=== PATIENT | female | born 1950 | race Caucasian/White ===

== ENCOUNTER 2017-12-07 15:00 | Emergency (ER) | payer OTHER ==
[~2017-12-07] VITALS: Ht 160 cm; Wt 59.4 kg
--- NOTE | ~2017-12-07 | EKG ---
[place] [address] [facility] 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: KKODJOVI : 1950 Requested By: Stacy Lindsey Order Number: [id number] MD: Donaldo Granger Measurements Intervals [place] Rate: 101 P: 48 TN: 147 QRS: 39 QRSD: 81 T: 39 QT: 343 QTc: 445 Interpretive Statements Sinus tachycardia Otherwise no significant abnormality Compared to ECG 04/08/2001 12:25:38 heart rate has increased Electronically Signed On 12-09-2017 8:28:24 CDT by Donaldo Granger [email or web address] <ELECTRONICALLY SIGNED> By: Donaldo Granger MD, [facility] 12/09/17 0828 1508 1508 Donaldo Granger MD, FACC /EPI
[~2017-12-07 15:00] MED LIST: PROAIR HFA8.5 GM IH; ZPAK PO
[2017-12-07 15:22] LABS: ABSOLUTE NEUTROPHILS 4.5 thou/uL (1.4-8.2); BASOPHILS 1.1 % (0.0-2.0); EOSINOPHILS 3.2 % (0.0-3.0); HEMATOCRIT 35.1 % (37.0-47.0); HEMOGLOBIN 11.8 gm/dL (12.0-15.0); LYMPHOCYTES 31.5 % (24.0-44.0); MCHC 33.7 g/dL (28.0-37.0); MONOCYTES 8.6 % (1.0-8.0); PLATELET COUNT 316 thou/uL (150-400); POLYS 55.6 % (36.0-66.0); RBC 4.08 mil/uL (4.20-5.00); RDW 15.9 % (10.5-14.5); WBC 8.1 thou/uL (4.0-11.0)
[2017-12-07] MEDS ORDERED: HYDROCHLOROTH12.5 M1 PO (15:26)
[2017-12-07] MEDS ORDERED: COZAAR 50 MG TA50 M2 PO (15:26)
[2017-12-07] MEDS ORDERED: FEMARA2.5 MG PO (15:27)
[2017-12-07] MEDS ORDERED: FLONASE 0.05%50 MCG NASAL (15:27)
[2017-12-07] MEDS ORDERED: JANUMET 50-1,01 EACH PO (15:32)
[2017-12-07 15:37] LABS: ANION GAP 9 mmol/L (7-16); BUN 18 mg/dL (7-18); CALCIUM 9.7 mg/dL (8.5-10.1); CHLORIDE 101 mmol/L (98-107); CO2 28 mmol/L (21-32); CREATININE 1.1 mg/dL (0.6-1.0); GLUCOSE 122 mg/dL (74-106); POTASSIUM 3.6 mmol/L (3.5-5.1); SODIUM 138 mmol/L (136-145)
[2017-12-07 15:42] LABS: ALBUMIN 3.8 g/dL (3.4-5.0); SGOT 24 U/L (15-37); SGPT 33 U/L (30-65); TOTAL BILIRUBIN 0.3 mg/dL (<0.1-1.0); TOTAL PROTEIN 7.8 g/dL (6.4-8.2); TROPONIN-I <0.06 ng/mL (<0.06)
[2017-12-07] MEDS ORDERED: LIDODERM1 EACH TRANSDERM (18:10)
[2017-12-07] MEDS ORDERED: VALIUM5 MG PO (18:10)
[2017-12-07 18:19] VITALS: BP 152/76
== END 2017-12-07 18:20 | disposition home or self-care (01) ==
LOC: ER 15:00
PROVIDERS: Student in an Organized Health Care Education/Training Program
DX: R07.89 Other chest pain (principal); M79.622 Pain in left upper arm; R00.0 Tachycardia, unspecified; E11.9 Type 2 diabetes mellitus without complications; I10 Essential (primary) hypertension; Z88.5 Allergy status to narcotic agent; Z85.3 Personal history of malignant neoplasm of breast; Z90.13 Acquired absence of bilateral breasts and nipples

== ENCOUNTER 2020-10-22 05:50 | Emergency (ER) | payer OTHER ==
[~2020-10-22] VITALS: Ht 157.5 cm; Wt 62.1 kg
[~2020-10-22 05:50] MED LIST changes: +COZAAR 50 MG TA50 M2 PO; +FEMARA2.5 MG PO; +FLONASE 0.05%50 MCG NASAL; +HYDROCHLOROTH12.5 M1 PO; +JANUMET 50-1,01 EACH PO; +LIDODERM1 EACH TRANSDERM; +VALIUM5 MG PO
[2020-10-22] MEDS ORDERED: JARDIANCE25 MG PO (06:00)
[2020-10-22] MEDS ORDERED: MEDROLDOSEPACK PO (07:13)
[2020-10-22] MEDS ORDERED: ZOFRAN ODT4 MG PO (07:13)
[2020-10-22 07:38] VITALS: BP 136/71
== END 2020-10-22 07:38 | disposition home or self-care (01) ==
LOC: ER 05:50
DX: S46.911A Strain of unspecified muscle, fascia and tendon at shoulder and upper arm level, right arm, initial encounter (principal); Z85.3 Personal history of malignant neoplasm of breast; Z90.11 Acquired absence of right breast and nipple; Z87.898 Personal history of other specified conditions; Z98.890 Other specified postprocedural states; X58.XXXA Exposure to other specified factors, initial encounter; Y93.89 Activity, other specified; Y92.89 Other specified places as the place of occurrence of the external cause; Y99.8 Other external cause status; E11.9 Type 2 diabetes mellitus without complications; Z88.5 Allergy status to narcotic agent

== ENCOUNTER 2021-02-15 19:45 | Inpatient (IN) | payer OTHER ==
[~2021-02-15] VITALS: Ht 160 cm; Wt 61.7 kg
[~2021-02-15 19:45] MED LIST changes: +JARDIANCE25 MG PO; +MEDROLDOSEPACK PO; +ZOFRAN ODT4 MG PO
[2021-02-15 20:18] VITALS: BP 177/101
[2021-02-15 20:55] LABS: ABSOLUTE NEUTROPHILS 5.1 thou/uL (1.4-8.2); BASOPHILS 0.6 % (0.0-2.0); EOSINOPHILS 6.2 % (0.0-3.0); HEMATOCRIT 37.7 % (37.0-47.0); HEMOGLOBIN 12.6 gm/dL (12.0-15.0); LYMPHOCYTES 20.3 % (24.0-44.0); MCH 28.4 pg (26.0-34.0); MCHC 33.3 g/dL (28.0-37.0); MCV 85.3 fL (80.0-100.0); MONOCYTES 8.6 % (1.0-8.0); PLATELET COUNT 265 thou/uL (150-400); POLYS 64.3 % (36.0-66.0); RBC 4.42 mil/uL (4.20-5.00); WBC 7.9 thou/uL (4.0-11.0)
[2021-02-15 20:59] LABS: CREATININE 1.4 mg/dL (0.6-1.0); POTASSIUM 4.4 mmol/L (3.5-5.1)
[2021-02-15 21:41] LABS: ALBUMIN 3.3 g/dL (3.4-5.0); TOTAL BILIRUBIN 0.2 mg/dL (0.2-1.0); TOTAL PROTEIN 7.7 g/dL (6.4-8.2)
[2021-02-15 22:54] LABS: INR 0.98; PROTIME 10.7 Seconds (10.5-12.1)
[2021-02-16] VITALS (11 sets, daily range): BP systolic 111–169; BP diastolic 53–94
[2021-02-16] MEDS ORDERED: JANUMET 50-5001 EACH PO (00:57)
[2021-02-16] MEDS ORDERED: FEMARA2.5 MG PO (00:58)
[2021-02-16] MEDS ORDERED: OMEPRAZOLE40 MG PO (00:59)
[2021-02-16] MEDS ORDERED: FOSAMAX 70 MG T70 MG PO (00:59)
[2021-02-16] MEDS ORDERED: ZOLOFT 50 MG TA50 MG PO (01:00)
[2021-02-16] MEDS ORDERED: ATACAND4 MG PO (01:00)
[2021-02-16] MEDS ORDERED: KAPSPARGO SPRIN25 MG PO (01:01)
[2021-02-16 02:54] LABS: CHOLESTEROL 244 mg/dL (<200); HDL CHOLESTEROL 51 mg/dL (>40); LDL CHOLESTEROL 147 mg/dL (<100); TC:HDL 4.8 Ratio (Not establshd); TRIGLYCERIDE 230 mg/dL (<150); VLDL 46 mg/dL (<40)
[2021-02-16 03:05] LABS: SERUM ASSESSMENT Slight Lipemia
--- NOTE | 2021-02-16 03:07 | NUR ---
pt admitted from er at 0130, alert and orientedx4, denies chest pain or sob, heparim and nitro gtt initiated in the ER, admission assessment, hx and education completed, c/o headache, tyl given, vital signs remains stable, pt is npo, no distress noted, will continue to monitor per poc
[2021-02-16 05:30] LABS: HEMATOCRIT 36.8 % (37.0-47.0); HEMOGLOBIN 11.8 gm/dL (12.0-15.0); MCH 27.8 pg (26.0-34.0); MCHC 31.9 g/dL (28.0-37.0); MCV 86.9 fL (80.0-100.0); RBC 4.24 mil/uL (4.20-5.00); RDW 17.7 % (10.5-14.5); WBC 8.2 thou/uL (4.0-11.0)
[2021-02-16 05:47] LABS: CREATININE 1.2 mg/dL (0.6-1.0); POTASSIUM 4.4 mmol/L (3.5-5.1)
--- NOTE | 2021-02-16 07:04 | EKG ---
[address] [place] [address] ELECTROCARDIOGRAM REPORT Name: YENNI AGUILA Room #: 212-P ADM IN M.R.#: [id number] Admission: 02/15/21 Attend Phys: Ankit Arechiga MD Discharge: Date of : 46 Report #: [id number] [facility] ED Test Date: 2021-02-15 Test Time: 21:55:55 Pat Name: YENNI AGUILA Department: Room: 212 Gender: F Risk Tech: chinmay : 1950 Requested By: Diamante Clayton Order Number: [id number] MD: Parrish Watts Measurements Intervals [place] Rate: 79 P: 52 [place]: 160 QRS: 65 QRSD: 101 T: 93 QT: 368 QTc: 422 Interpretive Statements Sinus rhythm Anterior infarct, old Nonspecific T abnormalities, lateral leads ST elevation, consider inferior injury Compared to ECG 12/07/2017 15:08:45 Myocardial infarct finding now present T-wave abnormality now present ST (T wave) deviation now present Sinus tachycardia no longer present Electronically Signed On 02-16-2021 7:04:38 CDT by Parrish Watts [email or web address] <ELECTRONICALLY SIGNED> By: Parrish Watts MD, FACC 02/16/21 0704 54 Parrish Watts MD, [facility] /EPI
--- NOTE | 2021-02-16 07:38 | EKG ---
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: rohan : 1950 Requested By: Diamante Clayton Order Number: [id number] MD: Donaldo Grangre Measurements Intervals [place] Rate: 97 P: 56 [place]: 155 QRS: 66 QRSD: 86 T: 82 QT: 344 QTc: 437 Interpretive Statements Sinus rhythm Poor R wave progression ST elevation, consider inferior injury Compared to ECG 12/07/2017 15:08:45 ST (T wave) deviation now present Sinus tachycardia no longer present Electronically Signed On 02-16-2021 7:38:10 CDT by Donaldo Granger [email or web address] <ELECTRONICALLY SIGNED> By: Donaldo Granger MD, [facility] 02/16/21 07 23 23 Donaldo Granger MD, [facility] /EPI
--- NOTE | 2021-02-16 11:57 | CATHLAB ---
[facility] [place] [address] INVASIVE PROCEDURE REPORT Name: YENNI AGUILA Room #: 212-P ADM IN M.R.#: [id number] Admission: 02/15/21 Attend Phys: Ankit Arechiga MD Discharge: Date of : 48 Report #: [id number] THIS REPORT FOR: cc: Brynn Shaikh MD Mohan, Purnima, MD Park, Jin S. MD ~ APPROVED REPORT Study performed: 02/16/2021 09:19:57 Patient Details Patient Status: In-Patient Room #: 212 The patient is a 71 year-old female Event Personnel Matias Burns Cheese Cooker, Michelle Monsalve RTR Monitor, Jemma Figueroa RTR Scrub, Cinthia Cancino RN physicians assistant Performed Art Access - R femoral artery* Left Heart Cath w/or w/o Coronaries 1790316 [facility] w/wo Plasty Single RCA 087781 Hemostasis w/ Mynx 71139 Initial Mod Sed Same Phys/QHP Gr5y 708926 99060 Mod Sed Same Phys/QHP Ea 874129 Indication Non-STEMI , Unstable angina , Chest pain Risk Factors Family History, Hypercholesterolemia, Hypertension, Diabetes Previous Procedures/Diagnoses 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 Procedure Narrative The Right Groin^ was infiltrated with 1% Lidocaine subcutaneous anesthesia. A PINNACLE 4FR Sheath #[id number] sheath was inserted into the RFA^. Coronary angiography was performed using coronary diagnostic catheters. The right coronary system was accessed and visualized with a JR4 catheter. The left coronary system was accessed and visualized with a JL4 catheter. The left ventricle was accessed and visualized with a PIGTAIL catheter. Left ventriculogram was performed in 30 degree projection. Closure device was deployed with a Fr MYNXGRIP 6/7F #[id number]. The patient tolerated the procedure well and there were no complications associated with the procedure. There [place] [address] [employer] [place] [address] INVASIVE PROCEDURE REPORT Name: AGUILAYENNI Room #: 212-P [facility] IN ..#: [id number] Admission: 02/15/21 Attend Phys: Ankit Arechiga, Discharge: Date of : 46 Report #: [id number] was no hematoma. Intraoperative Conscious Sedation Sedation start time: 10:15 Case end Time: 11:30 Fentanyl 100 mcg Versed 2 mg Fluoro Time: 12.90 minutes Dose: DAP 65367.20 cGycm2 1859 mGy Contrast Type and Amount: Visipaque 205 ml Coronary Angiography The patient's coronary anatomy is right dominant. Diagnostic Cath Left Main The left main artery is a large-caliber vessel, appears angiographically normal. LAD There is a total occlusion in the proximal LAD at the takeoff of the first septal electrical appliance repairer. Appears to be chronic with collateral filling of the mid LAD segment. The distal LAD is filled via collateral circulation from the PDA. Circumflex There is a severe occlusion in the proximal left circumflex artery, 70 to 80%. OM1 This is a small to moderate-sized caliber vessel with a 70% ostial stenosis. OM2 This is a moderate-sized caliber vessel, patent with no flow-limiting lesions. Right Coronary The RCA is a dominant vessel with severe occlusions in the proximal and mid segments. R PDA This is a small to moderate-sized caliber vessel, patent with no flow-limiting lesions. RPLV This is a small to moderate-sized caliber vessel, patent with no flow-limiting lesions. Left Ventriculography The left ventricle is mildly dilated in size with Diminished contractility. The left ventricular ejection fraction is estimated to be 35%. Hemodynamics The aortic pressure is 179/90 mmHg with a mean of 141 mmHg. The left ventricular pressure is 169/9 mmHg with a mean of mmHg. The left ventricular end diastolic pressure is 16 mmHg. PCI Technique Lesion Percutaneous coronary intervention was performed on the mid right [facility] [address] [place] [address] INVASIVE PROCEDURE REPORT Name: YENNI AGUILA Room #: 212-P [facility] IN M.R.#: [id number] Admission: 02/15/21 Attend Phys: Ankit Arechiga, Discharge: Date of : 48 Report #: [id number] coronary artery. The lesion stenosis prior to intervention was 80% with HOLLIS 3 flow. A VISTA 6FR JR 4 #[id number] Guide Catheter was used to engage the ostium. A Luge Wire .014 x 182CM #[id number] Interventional Guidewire was used to cross the lesion. BALLOON DILATION A Balloon catheter Euphora RX 2.25 x 25 #[id number] was inserted and inflated up to 12.00atm for 11seconds. Additional Inflation: 14.00atm for 13seconds. Additional Inflation: 8.00atm for 6seconds. STENT DEPLOYMENT A drug-eluting stent RESOLUTE LYDIA RX 2.5 X 34 #[id number] was inserted and inflated up to 14.00atm for 14seconds. Additional Inflation: 16.00atm for 8seconds. A drug-eluting stent RESOLUTE LYDIA RX 2.5 X 18 was inserted and inflated up to 18 Vladimir for 17 seconds. Additional inflations: 18 vladimir for 7 seconds. POST STENT DEPLOYMENT BALLOON DILATION A Balloon catheter Euphora NC RX 2.75 x 20 #[id number] was inserted and inflated up to 16.00atm for 17seconds. Additional Inflation: 18.00atm for 15seconds. Additional Inflation: 18.00atm for 12seconds. Final angiography reveals 0 % stenosis with HOLLIS 3 flow. PCI Technique Lesion 2 Percutaneous coronary intervention was performed on the proximal right coronary artery. The lesion stenosis prior to intervention was 85% with HOLLIS 3 flow. Balloon Dilation A Balloon catheter Euphora RX 2.25 x 25 #[id number] was inserted and inflated up to 14atm for 10seconds. Stent Deployment A drug-eluting stent RESOLUTE LYDIA RX 2.5 X 18 #[id number] was inserted and inflated up to 18atm for 12seconds. Post Stent Deployment Balloon Dilation A Balloon catheter Euphora NC RX 2.75 x 20 #[id number] was inserted and inflated up to 18atm for 14seconds. Final angiography reveals 0 % stenosis with HOLLIS 3 flow. Conclusion 1. PCI performed with placement of drug-eluting stents into the [facility] [address] [place] [address] INVASIVE PROCEDURE REPORT Name: YENNI AGUILA Room #: 212-P ADM IN M.R.#: [id number] Admission: 02/15/21 Attend Phys: Ankit Arechiga, Discharge: Date of : 48 Report #: [id number] proximal and mid segments of a dominant RCA. 2. Chronically occluded LAD stenosis with collateral filling of the mid and distal segments. 3. Severe occlusion of the proximal left circumflex artery. Recommend medical therapy versus staged PCI. 4. Mixed type cardiomyopathy, EF approximately 35%. 5. Recommend dual antiplatelet therapy and risk factor management. <ELECTRONICALLY SIGNED> By: Matias Burns MD 02/16/21 1157 56 115 Matias Burns MD /INF
--- NOTE | 2021-02-16 12:32 | NUR ---
PT OFF UNIT FOR CATH BETWEEN 10AM AND 11:45AM.
--- NOTE | 2021-02-16 14:25 | 2DMMODE ---
[facility] [place] [address] 2 D/M-MODE ECHOCARDIOGRAM Name: YENNI AGUILA Room #: 212-P ADM IN M.R.#: [id number] Admission: 02/15/21 Attend Phys: Ankit Arechiga MD Discharge: Date of : 48 Report #: [id number] THIS REPORT FOR: cc: Brynn Shaikh MD Mohan, Purnima, MD Park, Jin S. MD ~ APPROVED REPORT Study performed: 02/16/2021 13:34:08 EXAM: Comprehensive 2D, Doppler, and color-flow Echocardiogram Patient Location: Bedside Room #: 212 Status: routine BSA: 1.64 HR: 100 bpm BP: 137/65 mmHg Rhythm: Sinus Tach Other Information Study Quality: Adequate/dense tissue. Indications Chest pain. NSTEMI s/p PCI. 2D Dimensions IVSd: 12.61 (7-11mm) LVOT Diam: 20.35 (18-24mm) LVDd: 37.28 mm PWd: 10.88 (7-11mm) Ascending Ao: 28.52 (22-36mm) LVDs: 29.05 (25-40mm) Left Atrium: 26.66 (27-40mm) Aortic Root: 30.03 mm Volumes Left Atrial Volume (Systole) Single Plane 4CH: 13.75 mL Single Plane 2CH: 42.38 mL LA ESV Index: 16.00 mL/m2 Aortic Valve AoV Peak Seth.: 1.27 m/s AO Peak Gr.: 6.42 mmHg LVOT Max P.18 mmHg LVOT Max V: 0.89 m/s PATRICK Vmax: 2.29 cm2 [facility] [address] [place] [address] 2 D/M-MODE ECHOCARDIOGRAM Name: YENNI AGUILA Room #: 212-P [facility] IN [facility].#: [id number] Admission: 02/15/21 Attend Phys: Ankit Arechiga, Discharge: Date of : 48 Report #: [id number] Mitral Valve E/A Ratio: 0.6 MV Decel. Time: 154.91 ms MV E Max Seth.: 0.65 m/s MV A Seth.: 1.03 m/s MV PHT: 44.92 ms IVRT: 62.28 ms Pulmonary Valve PV Peak Seth.: 1.12 m/s PV Peak Gr.: 5.02 mmHg Tricuspid Valve RAP Estimate: 5.00 mmHg Left Ventricle The left ventricle is normal size. Regional wall motion abnormalities are noted. Mild basal septal hypertrophy is present. Left ventricular systolic function is moderately decreased. LVEF is 40%. Mild diastolic dysfunction is present (impaired relaxation pattern). Right Ventricle The right ventricle is normal size. The right ventricular systolic function is normal. Atria The left atrium size is normal. The right atrium size is normal. Aortic Valve The aortic valve is normal in structure. No aortic regurgitation is present. There is no aortic valvular stenosis. Mitral Valve The mitral valve is normal in structure. There is no mitral valve regurgitation noted. No evidence of mitral valve stenosis. Tricuspid Valve The tricuspid valve is normal in structure. Trace tricuspid regurgitation. Unable to assess PA pressure. Pulmonic Valve The pulmonary valve is normal in structure. There is no pulmonic valvular regurgitation. Great Vessels [facility] [address] [address] 2 D/M-MODE ECHOCARDIOGRAM Name: YENNI AGUILA Room #: 212-P [facility] IN M.R.#: [id number] Admission: 02/15/21 Attend Phys: Ankit Arechiga, Discharge: Date of : 48 Report #: [id number] The aortic root is normal in size. The ascending aorta is normal in size. IVC is normal in size and collapses >50% with inspiration. Pericardium There is no pericardial effusion. <Conclusion> The left ventricle is normal size. Left ventricular systolic function is moderately decreased. Mild diastolic dysfunction is present (impaired relaxation pattern). The right ventricle is normal size. The left atrium size is normal. The aortic valve is normal in structure. There is no mitral valve regurgitation noted. Trace tricuspid regurgitation. <ELECTRONICALLY SIGNED> By: Matias Burns MD 02/16/21 1424 1424 1424 Matias Burns MD /[facility]
--- NOTE | 2021-02-16 18:15 | NUR ---
PT HAD A CATH TODAY WITH TWO STINTS PLACED. GROIN SITE NO REDNESS, BLEEDING OR HEMATOMA. VITALS REMAINED STABLE THROUGHOUT. GOOD URINE OUTPUT SINCE CATH, NO BM TODAY. MULTIPLE FAMILY MEMBERS VISITED PT SINCE THE CATH.
[2021-02-17 01:06] LABS: GLYCOHEMOGLOBIN (HGB A1C) 9.2 % (4.8-5.6)
--- NOTE | 2021-02-17 01:33 | NUR ---
PT ADMITTED FROM ER AROUND 2014, ALERT AND ORIENTEDX4, AFIB ON TELE, HR IN THE 70S, CARDIZEM GTT INFUSING AT 10ML/HR, CARDIZEM TITRATED AND MAINMTAINED AT 5ML/HR. CHIEF I DISPATCHER NOTIFIED OF A ONETIME CARDIZEM ORDER, ORDERS RECEIVED TO CONTINUE CARDIZEM GTT, ADMISSION ASSESSMENT, HX AND EDUCATION COMPLETED, DENIES PAIN OR SOB, PT O2SATS IN THE UPPER 80S ON RA, PT ON 2L NC, BP STABLE, NO NEEDS AT THIS TIME, WILL CONTINUE TO MONITOR BP/HR PER POC
--- NOTE | 2021-02-17 02:59 | NUR ---
ASSUMED PT CARE AT 1900, ALERT AND ORIENTED, DENIES PAIN, R. GROIN SITE CDI, NO HEMATOMA, AMBULATED TO THE BATHROOM STBY ASSIST, VSS, ASSESSMENTS CHARTED, NO DISTRESS NOTED, WILL CONTINUE TO MONITOR, PLAN FOR POSSIBLE DISCHARGE TODAY
[2021-02-17 03:48] VITALS: BP 127/65
[2021-02-17 05:10] LABS: HEMATOCRIT 34.7 % (37.0-47.0); HEMOGLOBIN 11.2 gm/dL (12.0-15.0); MCH 27.9 pg (26.0-34.0); MCHC 32.2 g/dL (28.0-37.0); MCV 86.7 fL (80.0-100.0); RDW 17.4 % (10.5-14.5); WBC 8.8 thou/uL (4.0-11.0)
[2021-02-17 05:28] LABS: ALBUMIN 2.9 g/dL (3.4-5.0); CALCIUM 8.5 mg/dL (8.5-10.1); CREATININE 0.9 mg/dL (0.6-1.0); POTASSIUM 3.9 mmol/L (3.5-5.1); TOTAL BILIRUBIN 0.5 mg/dL (0.2-1.0); TOTAL PROTEIN 6.9 g/dL (6.4-8.2)
[2021-02-17 07:34] VITALS: BP 140/56
[2021-02-17] MEDS ORDERED: EFFIENT10 MG PO (09:24)
[2021-02-17] MEDS ORDERED: ADULT LOW DOSE81 MG PO (09:24)
[2021-02-17] MEDS ORDERED: COREG6.25 MG PO (09:24)
[2021-02-17 11:44] VITALS: BP 93/52
--- NOTE | 2021-02-17 11:46 | EKG ---
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 : 1950 Requested By: Matias Burns Order Number: [id number] : Parrish Watts Measurements Intervals [place] Rate: 86 P: 46 HI: 133 QRS: 2 QRSD: 80 T: 86 QT: 364 QTc: 436 Interpretive Statements Sinus rhythm Probable left atrial enlargement Anterior infarct, old Minimal ST elevation, inferior leads Compared to ECG 02/15/2021 21:55:55 T-wave abnormality no longer present Myocardial infarct finding still present ST (T wave) deviation still present Electronically Signed On 02-17-2021 11:46:19 CDT by Parrish Watts [email or web address] <ELECTRONICALLY SIGNED> By: Parrish Watts MD, FACC 02/17/21 1146 0748 0748 Parrish Watts MD, FAC /EPI
[2021-02-17 12:36] VITALS: BP 93/52
--- NOTE | 2021-02-17 13:26 | NUR ---
PATIENT DISCHARGE DONE, NO QUESTIONS OR CONCERNS DURING TEACHING. IV AND TELE REMOVED. TAKEN OUT BY WHEELCHAIR WITH STAFF TO PRIVATE VEHICLE WITH SPOUSE WAITING.
== END 2021-02-17 13:37 | disposition home or self-care (01) | DRG 246 ==
LOC: ER 19:45 → 2N 22:35 → EROBS 22:35 → 2N 02-16 01:35
PROVIDERS: Internal Medicine Cardiovascular Disease; Nurse Practitioner Family; ADMIT Internal Medicine; ATTEND Internal Medicine
DX: I21.4 Non-ST elevation (NSTEMI) myocardial infarction (principal); N17.0 Acute kidney failure with tubular necrosis; I42.9 Cardiomyopathy, unspecified; I10 Essential (primary) hypertension; E11.65 Type 2 diabetes mellitus with hyperglycemia; E78.5 Hyperlipidemia, unspecified; Z20.822 Contact with and (suspected) exposure to COVID-19; Z85.3 Personal history of malignant neoplasm of breast; Z90.11 Acquired absence of right breast and nipple; Z88.6 Allergy status to analgesic agent; Z88.8 Allergy status to other drugs, medicaments and biological substances; Z87.442 Personal history of urinary calculi; Z85.118 Personal history of other malignant neoplasm of bronchus and lung; Z86.14 Personal history of Methicillin resistant Staphylococcus aureus infection; Z79.82 Long term (current) use of aspirin; Z79.899 Other long term (current) drug therapy
CPT/HCPCS: 10081

== ENCOUNTER → 2021-02-27 | Outpatient (CLI) | payer OTHER ==
[~2021-02-27] MED LIST changes: +ADULT LOW DOSE81 MG PO; +ATACAND4 MG PO; +COREG6.25 MG PO; +EFFIENT10 MG PO; +FOSAMAX 70 MG T70 MG PO; +JANUMET 50-5001 EACH PO; +KAPSPARGO SPRIN25 MG PO; +OMEPRAZOLE40 MG PO; +ZOLOFT 50 MG TA50 MG PO
== END ==
LOC: SJCVC 13:35
PROVIDERS: ATTEND Internal Medicine Cardiovascular Disease
DX: R94.31 Abnormal electrocardiogram [ECG] [EKG] (principal); I25.10 Atherosclerotic heart disease of native coronary artery without angina pectoris; I42.9 Cardiomyopathy, unspecified; I10 Essential (primary) hypertension; E78.00 Pure hypercholesterolemia, unspecified; E11.9 Type 2 diabetes mellitus without complications; Z88.2 Allergy status to sulfonamides; Z88.8 Allergy status to other drugs, medicaments and biological substances; Z79.82 Long term (current) use of aspirin; Z79.899 Other long term (current) drug therapy; Z95.818 Presence of other cardiac implants and grafts

== ENCOUNTER 2021-03-02 09:11 | Observation (INO) | payer OTHER ==
[~2021-03-02] VITALS: Ht 160 cm; Wt 59.9 kg
[2021-03-02 10:59] VITALS: BP 149/74
--- NOTE | 2021-03-02 14:25 | CATHLAB ---
[address] [place] [address] INVASIVE PROCEDURE REPORT Name: YENNI AGUILA Room #: REG SUNIL Yuriy.#: [id number] Admission: 03/02/21 Attend Phys: Matias Burns MD Discharge: Date of : 46 Report #: [id number] THIS REPORT FOR: cc: Nikhil Quinn MD, Logan F. MD Park, Jin S. MD ~ APPROVED REPORT Study performed: 03/02/2021 11:07:35 Patient Details Patient Status: Out-Patient Room #: The patient is a 71 year-old female Event Personnel Matias Burns Emulsion Operator, Ayana Gómez RTR, GIFT PACKER Monitor, Cinthia Cancino RN RN, Michelle Monsalve RTR Scrub Procedures Performed Art Access - L femoral artery* Coronary Angiography Only [id number] [facility] Place w/wo Plasty Single CIRC 403262 PTCA Single Vessel OM 8078601 PCISINGLE Hemostasis with Manual pressure 74806 Initial Mod Sed Same Phys/QHP Gr5y 542500 65777 Mod Sed Same Phys/QHP Ea 662267 Indication Dyspnea, Cardiomyopathy, Chest pain, The patient recently presented with non-ST elevation OK, undergoing stent placement to the RCA. She now presents for staged PCI involving severe stenosis in the left circumflex system. Risk Factors Hypercholesterolemia, Coronary Artery DiseaseHypertension, Diabetes Procedure Narrative The Left Groin^ was infiltrated with 1% Lidocaine subcutaneous anesthesia. A PINNACLE 6FR Sheath #[id number] sheath was inserted into the LFA^. Coronary angiography was performed using coronary diagnostic catheters. The right coronary system was accessed and visualized with a 5FR JR 4 #[id number] catheter. The left coronary system was accessed and visualized with a VISTA 6FR XB 3.5 #[id number] catheter. Hemostasis obtained two hours after procedure. Intraoperative Conscious Sedation [address] [address] INVASIVE PROCEDURE REPORT Name: AGUILAYENNI Room #: REG [facility]#: [id number] Admission: 03/02/21 Attend Phys: Matias Burns MD Discharge: Date of : 46 Report #: [id number] Sedation start time: 12:13 Case end Time: 13:04 Fentanyl 100 mcg Versed 2 mg Fluoro Time: 13.10 minutes Dose: DAP 7783.20 cGycm2 1228 mGy Contrast Type and Amount: Omnipaque 150 ml Coronary Angiography The patient's coronary anatomy is right dominant. Diagnostic Cath Circumflex There is a severe occlusion in the proximal left circumflex artery, 80%. Hemodynamics The aortic pressure is 180/77 mmHg with a mean of 115 mmHg. PCI Technique Lesion Percutaneous coronary intervention was performed on the proximal circumflex artery segment. The lesion stenosis prior to intervention was 80% with HOLLIS 3 flow. A VISTA 6FR XB 3.5 #[id number] Guide Catheter was used to engage the ostium. A Luge Wire .014 x 182CM #[id number] Interventional Guidewire was used to cross the lesion. BALLOON DILATION A Balloon catheter Euphora RX 2.25 x 12 #[id number] was inserted and inflated up to 8.00atm for 12seconds. Additional Inflation: 8.00atm for 10seconds. STENT DEPLOYMENT A drug-eluting stent RESOLUTE LYDIA RX 2.75 X 18 #[id number] was inserted and inflated up to 10.00atm for 22seconds. Additional Inflation: 14.00atm for 13seconds. POST STENT DEPLOYMENT BALLOON DILATION A Balloon catheter Euphora NC RX 2.75 x 15 #[id number] was inserted and inflated up to 14.00atm for 20seconds. Additional Inflation: 8.00atm for 20seconds. Final angiography reveals 0 % stenosis with HOLLIS 3 flow. COMMENTS At the lesion site, there is a takeoff of the first OM vessel, which has an ostial 60% stenosis. Appeared to have increased with stent placement in the proximal left circumflex segment. I placed a second [address] [place] [address] INVASIVE PROCEDURE REPORT Name: YENNI AGUILA Room #: REG [facility].#: [id number] Admission: 03/02/21 Attend Phys: Matias Burns MD Discharge: Date of : 46 Report #: [id number] luge wire through the stent strut into the first obtuse marginal artery. A 2.0 mm compliant balloon was inflated at the ostium of OM1 up to 8 esteban. I then placed the 2.75 mm noncompliant balloon into the left circumflex stent, inflated up to 14 esteban. PCI Technique Lesion 2 Percutaneous Coronary Intervention was performed on the first obtuse marginal branch segment. A VISTA 6FR XB 3.5 #380650 Guide Catheter was used to engage the ostium. A Luge Wire .014 x 182CM #[id number] Interventional Guidewire was used to cross the lesion. Balloon Dilation A Balloon catheter [employer] RX 2.0 x12 #[id number] was inserted and inflated up to 8.00atm for 22seconds. Conclusion 1. PCI with placement of a drug-eluting stent into the proximal segment of the left circumflex artery. 2. Balloon angioplasty of the ostium of OM1, through the left circumflex stent strut. 3. Recommend dual antiplatelet therapy and aggressive risk factor management. <ELECTRONICALLY SIGNED> By: Matias Burns MD 03/02/215 24 142 Matias Burns MD /INF
[2021-03-02 20:15] VITALS: BP 105/54; BP 125/53
[2021-03-03 05:16] VITALS: BP 142/76
[2021-03-03 06:19] LABS: HEMATOCRIT 31.6 % (37.0-47.0); HEMOGLOBIN 10.2 gm/dL (12.0-15.0); MCH 28.3 pg (26.0-34.0); MCHC 32.3 g/dL (28.0-37.0); MCV 87.6 fL (80.0-100.0); RBC 3.61 mil/uL (4.20-5.00); RDW 17.2 % (10.5-14.5)
[2021-03-03 06:35] LABS: ALBUMIN 2.9 g/dL (3.4-5.0); CALCIUM 8.4 mg/dL (8.5-10.1); CREATININE 0.9 mg/dL (0.6-1.0); POTASSIUM 3.9 mmol/L (3.5-5.1); TOTAL BILIRUBIN 0.3 mg/dL (0.2-1.0); TOTAL PROTEIN 6.1 g/dL (6.4-8.2)
--- NOTE | 2021-03-03 07:12 | EKG ---
[address] [address] ELECTROCARDIOGRAM REPORT Name: YENNI AGUILA Room #: 214-P [facility] M..#: [id number] Admission: 03/02/21 Attend Phys: Matias Burns MD Discharge: Date of : 46 Report #: [id number] [facility] Test Date: 2021-03-02 Test Time: 11:43:13 Pat Name: YENNI AGUILA Department: Room: 214 Gender: F Record Clerk: FSCHWALIVETH : 1950 Requested By: Matias Burns Order Number: [id number] : Parrish Watts Measurements Intervals [place] Rate: 82 P: 38 OR: 158 QRS: 1 QRSD: 83 T: 59 QT: 365 QTc: 427 Interpretive Statements Sinus rhythm Probable left atrial enlargement Borderline low voltage, extremity leads Probable anteroseptal infarct, old Compared to ECG 02/17/2021 07:48:58 ST (T wave) deviation no longer present Myocardial infarct finding still present Electronically Signed On 03-03-2021 7:11:55 [facility] by Parrish Watts [email or web address] <ELECTRONICALLY SIGNED> By: Parrish Watts MD, [facility] 03/03/21 0711 1143 1143 Parrish Watts MD, [facility] /EPI
--- NOTE | 2021-03-03 07:13 | EKG ---
[address] [address] ELECTROCARDIOGRAM REPORT Name: YENNI AGUILA Room #: 214-[facility] M..#: [id number] Admission: 03/02/21 Attend Phys: Matias Burns MD Discharge: Date of : 46 Report #: [id number] [facility] Test Date: 2021-03-03 Test Time: 07:10:21 Pat Name: YENNI AGUILA Department: Room: 214 P Gender: F Vice President Compliance: FSCHWALBE : 1950 Requested By: Matias Burns Order Number: [id number] : Parrish Watts Measurements Intervals [place] Rate: 71 P: 55 [place]: 156 QRS: 24 QRSD: 115 T: 65 QT: 448 QTc: 487 Interpretive Statements Sinus rhythm Nonspecific intraventricular conduction delay Probable anterior infarct, age indeterminate Compared to ECG 03/02/2021 13:37:36 Intraventricular conduction delay now present T-wave abnormality no longer present Prolonged QT interval no longer present Myocardial infarct finding still present Electronically Signed On 03-03-2021 7:13:33 STEM ROLLER OR CRUSHER OPERATOR by Parrish [email or web address] <ELECTRONICALLY SIGNED> By: Parrish Watts MD, FAC 03/03/21712 9 9 Parrish Watts MD, [facility] /EPI
--- NOTE | 2021-03-03 07:13 | EKG ---
[address] [address] ELECTROCARDIOGRAM REPORT Name: YENNI AGUILA Room #: 214-P [facility] M.R.#: [id number] Admission: 03/02/21 Attend Phys: Matias Burns MD Discharge: Date of : 46 Report #: [id number] [facility] Test Date: 2021-03-02 Test Time: 13:37:36 Pat Name: YENNI AGUILA Department: Room: 214 Gender: F [employer]: IAM : 1950 Requested By: Matias Burns Order Number: [id number] MD: Parrish Watts Measurements Intervals Kimberly Rate: 84 P: 50 WI: 162 QRS: 39 QRSD: 90 T: 28 QT: 431 QTc: 510 Interpretive Statements Sinus rhythm Probable left atrial enlargement Borderline low voltage, extremity leads Probable anteroseptal infarct, old Nonspecific T abnormalities, lateral leads Compared to ECG 03/02/2021 11:43:13 T-wave abnormality now present Myocardial infarct finding still present Electronically Signed On 03-03-2021 7:12:50 TAKER OFF by Parrish Watts [email or web address] <ELECTRONICALLY SIGNED> By: Parrish Watts MD, FAC 03/03/21 0712 36 36 Parrish Watts MD, [facility] /EPI
[2021-03-03 08:47] VITALS: BP 121/64
--- NOTE | 2021-03-03 08:58 | NUR ---
PATIENT OFF BED REST AT 2130. CATH ENTRY SIDE REMAINED THE SAME DURING THE ENTIRE SHIFT. UP TO BSC. WANTING TO GO HOME TODAY.
[2021-03-03 12:00] VITALS: BP 109/55
[2021-03-03 14:52] VITALS: BP 109/55
--- NOTE | 2021-03-03 15:28 | NUR ---
PATIENT DISCHARGED, EDUCATION AND TEACHING DONE AT BEDSIDE WITH SPOUSE PRESENT. NO QUESTIONS OR CONCERNS FROM EITHER. PATIENT UP AD ARIAN IN ROOM. TELE AND IV REMOVED. TAKEN OUT BY STAFF IN WHEELCHAIR TO PRIVATE VEHCILE.
== END 2021-03-03 15:30 | disposition home or self-care (01) ==
LOC: CATH 09:11 → 2N 16:23
PROVIDERS: ADMIT Internal Medicine Cardiovascular Disease; ATTEND Internal Medicine Cardiovascular Disease
DX: I25.10 Atherosclerotic heart disease of native coronary artery without angina pectoris (principal); I21.4 Non-ST elevation (NSTEMI) myocardial infarction; I10 Essential (primary) hypertension; E11.9 Type 2 diabetes mellitus without complications; E78.5 Hyperlipidemia, unspecified; Z85.3 Personal history of malignant neoplasm of breast; Z79.82 Long term (current) use of aspirin; Z79.899 Other long term (current) drug therapy

== ENCOUNTER → 2021-03-21 | Outpatient (CLI) | payer OTHER | END | disposition home or self-care (01) | LOC: SJCVC 11:13 | PROVIDERS: ATTEND Internal Medicine Cardiovascular Disease | DX: R94.31 Abnormal electrocardiogram [ECG] [EKG] (principal); I25.10 Atherosclerotic heart disease of native coronary artery without angina pectoris; I10 Essential (primary) hypertension; I42.9 Cardiomyopathy, unspecified; E78.00 Pure hypercholesterolemia, unspecified; E11.9 Type 2 diabetes mellitus without complications; E78.5 Hyperlipidemia, unspecified; Z88.5 Allergy status to narcotic agent; Z88.8 Allergy status to other drugs, medicaments and biological substances; Z79.82 Long term (current) use of aspirin; Z79.899 Other long term (current) drug therapy; Z95.818 Presence of other cardiac implants and grafts ==